=== PATIENT | female | born 1995 | race Asian ===

== ENCOUNTER 2022-01-14 00:30 | Emergency (ER) | payer OTHER ==
[2022-01-14 00:36] VITALS: BP 127/62
[2022-01-14 00:40] VITALS: BP 127/62
[2022-01-14] MEDS ORDERED: AMOXICILLIN875 MG PO (00:46)
[2022-01-14 01:01] VITALS: BP 126/69
== END 2022-01-14 01:11 | disposition home or self-care (01) | DRG 605 ==
LOC: ED 00:30
DX: S80.871A Other superficial bite, right lower leg, initial encounter (principal); W54.0XXA Bitten by dog, initial encounter